=== PATIENT | male | born 1980 | race Caucasian/White ===

== ENCOUNTER 2019-12-29 16:22 | Day surgery (SDC) | payer MEDICAID ==
[~2019-12-29] VITALS: Ht 177.8 cm; Wt 69.4 kg
[2019-12-29 07:56] VITALS: BP 114/82; Ht 177.8 cm; Wt 69.4 kg
[2019-12-29 08:17] LABS: HEMOGLOBIN 14.2 g/dL (13.5-17.5); MCH 31.8 pg (26.0-34.0); MCV 96.2 fL (80.0-100.0); MEAN PLATELET VOLUME 10.9 fL (7.4-10.4); RBC 4.47 10x6/uL (4.20-6.10); RDW 12.1 % (11.5-14.5); WBC 6.2 10x3/uL (4.8-10.8)
--- NOTE | 2019-12-29 11:39 | NUR ---
1138 OPA DISCONTINUED. PATIENT AROUSABLE AND MAINTAINING PATENT AIRWAY
--- NOTE | 2019-12-29 16:05 | NUR ---
1313-REPORTS PAIN 5/10 TO INCISION SITE. ADMINISTERED NORCO 5/325MG 1 BY MOUTH PER MD ORDERS. VSS.NO DISTRESS.
--- NOTE | 2019-12-29 16:08 | NUR ---
1400-AMBULATED TO RESTROOOM.UNABLE TO VOID AT THIS TIME.
--- NOTE | 2019-12-29 16:09 | NUR ---
1515-AMBULATED TO RESTROOM AND VOIDED WITHOUT COMPLICATIONS. VSS.DRESSING CDI.NO DISTRESS. PAIN 10/11. REMOVED IV WITH CATH INTACT,DISPOSED INTO SHARPS,COVERED WITH GUAZE,SECURED WITH MEDIPORE TAPE.
--- NOTE | 2019-12-29 16:11 | NUR ---
1530-PT DRESSED.REVIEWED POST OPERATIVE INSTRUCTIONS,FOLLOW UP APPOINTMENT,AND TO FILL PRESCRIPTIONS AND TAKE PRESCRIBED.VERBALIZED UNDERSTANDING. ESCORTED OUT VIA W/C WITH FRIEND AWAITING TO DRIVE HOME.
[~2019-12-29 16:22] MED LIST: FLOMAX0.4 MG PO; HYDROCODON-ACE1 EAC7 PO; LASIX20 MG PO
== END 2019-12-29 16:23 | disposition home or self-care (01) ==
LOC: D.OPS 16:22
PROVIDERS: Anesthesiology; ATTEND Surgery
DX: K40.30 Unilateral inguinal hernia, with obstruction, without gangrene, not specified as recurrent (principal); F17.200 Nicotine dependence, unspecified, uncomplicated; R10.2 Pelvic and perineal pain